=== PATIENT | male | born 1960 | race Two or more races ===

== ENCOUNTER 2019-09-08 00:52 | Emergency (ER) | payer MEDICAID ==
[~2019-09-08] VITALS: Ht 170.2 cm; Wt 68.0 kg
[2019-09-08 01:00] VITALS: BP 130/80
--- NOTE | 2019-09-08 01:00 | NUR ---
ED Nurse Note: Pt. called ambulance. At arrival, AOx4 and decided not to be treated and wanted to go home. Seen by MD and discharged. Pt had a steady gait.
--- NOTE | 2019-09-08 01:03 | Emergency Room Report ---
History of Present Illness General Chief Complaint: Dizziness Source: Patient, EMS Present Illness HPI This a 59-year-old male with no past medical history. He presents with complaint of dizziness. He said he was at home and felt dizzy and called 911. By time he got here he said he is asymptomatic and does not want to come in. [employer] Transportation convinced him to go inside. But when he is here he refused any triage and said he does not want to stay. Said he wants to leave. He is no longer dizzy. Denies any suicidal thoughts homicidal thought. No pain. No trauma. Allergies: Coded Allergies: No Known Allergies (Unverified , 09/08/19) COVID-19 Screening Contact w/high risk pt: No Recent Travel to affected area: No Experienced COVID-19 symptoms?: No COVID-19 Testing performed [employer]: No Patient History Past Medical History: see triage record, old chart reviewed Past Surgical History: none Pertinent Family History: none Immunizations: other Reviewed Nursing Documentation: PMH: Agreed; PSxH: Agreed Nursing Documentation-PMH History Of Psychiatric Problem: Yes - hallucinations Review of Systems Eye: Denies: eye pain, blurred vision ENT: Denies: ear pain, nose congestion, throat swelling Respiratory: Denies: cough, shortness of breath Cardiovascular: Denies: chest pain, palpitations Gastrointestinal: Denies: abdominal pain, diarrhea, nausea, vomiting Musculoskeletal: Denies: back pain, joint pain Skin: Denies: rash Neurological: Denies: headache, numbness Endocrine: Denies: increased thirst, increased urine Hematologic/Lymphatic: Denies: easy bruising All Other Systems: negative except mentioned in HPI Physical Exam Vital Signs Date Time Temp Pulse Resp B/P (MAP) Pulse Ox O2 Delivery O2 Flow Rate FiO2 09/08/19 00:50 97.0 78 18 130/80 (97) 99 Room Air Vitals normal Sp02 EP Interpretation: reviewed, normal General Appearance: well appearing, no apparent distress, alert Head: normocephalic, atraumatic Eyes: bilateral eye PERRL, bilateral eye EOMI ENT: hearing grossly normal, normal pharynx Neck: full range of motion, supple, no meningismus Respiratory: chest non-tender, lungs clear, normal breath sounds Cardiovascular #1: regular rate, rhythm, no murmur Gastrointestinal: normal bowel sounds, non tender, no mass, no organomegaly, no bruit, non-distended Musculoskeletal: back normal, normal range of motion, gait/station normal Psychiatric: mood/affect normal Medical Decision Making Diagnostic Impression: Primary Impression: Dizziness of unknown cause ER Course Patient presents with dizziness. He is asymptomatic right now. He is walking without any problem. He denies any psychiatric issue with me. He is competent to make a decision to leave AGAINST MEDICAL ADVICE. Last Vital Signs Date Time Temp Pulse Resp B/P (MAP) Pulse Ox O2 Delivery O2 Flow Rate FiO2 09/08/19 00:50 97.0 78 18 130/80 (97) 99 Room Air Status: improved Disposition: AGAINST MEDICAL ADVICE Condition: Stable Patient Instructions: Dizziness Additional Instructions: Follow-up with your doctor in 7 days. Return if symptoms worsen. Lui Worthington MD September 08, 2019 01:03
== END 2019-09-08 01:05 | disposition left against medical advice (07) ==
LOC: EDBD 00:52 → EMR 01:05
DX: R42 Dizziness and giddiness (principal)
CPT/HCPCS: 99281